=== PATIENT | female | born 1980 | race Hispanic/Latino ===

== ENCOUNTER 2019-07-26 11:08 | Emergency (ER) | payer BC, OTHER ==
[2019-07-26 12:09] LABS: BASOPHILS % (AUTO) 0.4 % (0.0-5.0); HEMATOCRIT 41.9 % (36-48); LYMPHOCYTES % (AUTO) 31.3 % (21.0-51.0); MEAN CORPUSCULAR HEMOGLOBIN 30.6 pg (27.0-33.0); MEAN CORPUSCULAR HGB CONC 33.9 g/dL (32.0-36.0); MEAN CORPUSCULAR VOLUME 90.3 fL (79-99); MONOCYTES % (AUTO) 4.5 % (3.0-13.0); NEUTROPHILS % (AUTO) 62.5 % (40.0-77.0); PLATELET COUNT (AUTO) 228 K/uL (130-400); RED BLOOD CELL COUNT(AUTO) 4.64 MIL/uL (4.00-5.50); RED CELL DISTRIBUTION WIDTH 13.1 % (11.0-15.5); WHITE BLOOD COUNT (AUTO) 7.2 K/uL (4.8-10.8)
[2019-07-26 12:13] LABS: CREATININE 0.8 mg/dL (0.5-1.5); POTASSIUM 4.3 mmol/L (3.5-5.1)
[2019-07-26 12:31] LABS: BILIRUBIN,TOTAL 0.3 mg/dL (0.2-1.0); TOTAL PROTEIN, SERUM 8.6 g/dL (6.0-8.3)
[2019-07-26 12:53] LABS: APPEARANCE,URINE SL CLOUDY (CLEAR); BILIRUBIN,URINE NEGATIVE (NEGATIVE); COLOR,URINE YELLOW (YELLOW); GLUCOSE, URINE (UA) NEGATIVE (NEGATIVE); KETONES,URINE NEGATIVE (NEGATIVE); LEUKOCYTE ESTERASE ,URINE NEGATIVE (NEGATIVE); NITRATE,URINE NEGATIVE (NEGATIVE); OCCULT BLOOD,URINE LARGE (NEGATIVE); PROTEIN,URINE 30 mg/dL (NEGATIVE); UROBILINOGEN,URINE 0.2 mg/dL (0.2-1.0)
[2019-07-26 13:08] LABS: BACTERIA,URINE Moderate /HPF (None Seen); RBC,URINE TNTC /HPF (0-1); SQUAMOUS EPITHELIAL CELL,UR Few /HPF (0-2); WBC,URINE 0-1 /HPF (0-1)
== END 2019-07-26 13:04 | disposition home or self-care (01) ==
LOC: EDH 11:08
DX: O03.9 Complete or unspecified spontaneous abortion without complication (principal); I10 Essential (primary) hypertension; Z98.890 Other specified postprocedural states; Z91.041 Radiographic dye allergy status
CPT/HCPCS: 36415; 76801; 80053; 81001; 84702; 85025; 86900; 86901; 87077; 87088; 87186

== ENCOUNTER 2022-07-24 19:27 | Emergency (ER) | payer BC, OTHER ==
[2022-07-24 20:27] LABS: BASOPHILS % (AUTO) 0.3 % (0.0-5.0); EOSINOPHILS % (AUTO) 1.5 % (0.0-8.0); HEMATOCRIT 36.1 % (36-48); MEAN CORPUSCULAR HEMOGLOBIN 30.8 pg (27.0-33.0); MEAN CORPUSCULAR HGB CONC 33.2 g/dL (32.0-36.0); MEAN CORPUSCULAR VOLUME 92.8 fL (79-99); MONOCYTES % (AUTO) 4.4 % (3.0-13.0); NEUTROPHILS % (AUTO) 61.5 % (40.0-77.0); PLATELET COUNT (AUTO) 206 K/uL (130-400); RED BLOOD CELL COUNT(AUTO) 3.89 MIL/uL (4.00-5.50); WHITE BLOOD COUNT (AUTO) 6.5 K/uL (4.8-10.8)
[2022-07-24] MEDS ORDERED: KETOROLAC 15MG/ML VIAL (15MG/ML) IV ONE (20:30)
[2022-07-24] MEDS ORDERED: 0.9%NACL 1000ML 1,000 ML IV ONE (20:30)
[2022-07-24 20:38] LABS: CREATININE 0.8 mg/dL (0.5-1.5); POTASSIUM 3.3 mmol/L (3.5-5.1)
[2022-07-24 20:43] LABS: ALBUMIN 3.4 g/dL (3.5-5.0); TOTAL PROTEIN, SERUM 7.2 g/dL (6.0-8.3)
[2022-07-24 20:53] LABS: APPEARANCE,URINE CLOUDY (CLEAR); BILIRUBIN,URINE NEGATIVE (NEGATIVE); COLOR,URINE LIGHT-YELLOW (YELLOW); GLUCOSE, URINE (UA) NEGATIVE (NEGATIVE); KETONES,URINE NEGATIVE (NEGATIVE); LEUKOCYTE ESTERASE ,URINE NEGATIVE Leu/uL (NEGATIVE); NITRATE,URINE NEGATIVE (NEGATIVE); PH,URINE 5.5 (5.0-8.0); PROTEIN,URINE NEGATIVE (NEGATIVE); UROBILINOGEN,URINE 0.2 mg/dL (0.2-1.0)
[2022-07-24 21:01] LABS: HCG,QUALITATIVE URINE NEGATIVE (NEGATIVE)
[2022-07-24 21:21] LABS: BACTERIA,URINE MOD /HPF (None Seen); MUCUS,URINE FEW LPF (None Seen); SQUAMOUS EPITHELIAL CELL,UR MOD /HPF (0-2); YEAST,URINE BUDDING FEW /HPF (None Seen)
[2022-07-24] MEDS ORDERED: ONDA4TAB10 PO (21:46)
[2022-07-24 21:59] VITALS: BP 115/62
[2022-07-24] MEDS ORDERED: KCL 20 MEQ ERTAB PO ONE (22:00)
== END 2022-07-24 22:01 | disposition home or self-care (01) ==
LOC: EDH 19:27
DX: U07.1 COVID-19 (principal); E87.6 Hypokalemia; T50.905A Adverse effect of unspecified drugs, medicaments and biological substances, initial encounter; Z90.49 Acquired absence of other specified parts of digestive tract; Z88.8 Allergy status to other drugs, medicaments and biological substances; Y92.89 Other specified places as the place of occurrence of the external cause
CPT/HCPCS: 99283; 96374; 96361; 80053; 85025; 87088; 81001; 81025; 36415; J7030; J1885